=== PATIENT | female | born 1930 | race Caucasian/White ===

== ENCOUNTER 2016-10-08 19:06 | Inpatient (IN) | payer OTHER ==
[~2016-10-08] VITALS: Ht 152.4 cm; Wt 56.5 kg
[2016-10-08 19:56] LABS: HEMATOCRIT 36.6 % (36.0-46.0); MCH 29.9 PG (29.0-34.0); MCHC 34.2 G/DL (30.0-36.0); MCV 87.6 FL (83-99); MEAN PLAT.VOLUME 9.1 uM^3 (9.5-12.4); PLATELET COUNT 422 K/uL (156-360); RBC DIS.WIDTH-SD 40.2 % (39-53); RED BLOOD COUNT 4.18 M/uL (3.80-5.20); WHITE BLOOD COUNT 14.3 K/uL (4.1-10.2)
[2016-10-08 20:05] LABS: CHLORIDE 87 mEq/L (99-109); POTASSIUM 3.7 mEq/L (3.7-5.4); SODIUM 129 mEq/L (136-147)
[2016-10-08 20:06] LABS: GLUCOSE 123 mg/dL (70-99)
[2016-10-08 20:08] LABS: ANION GAP 18 MEQ/L (2-14)
[2016-10-08 20:10] LABS: GFR ESTIMATE (CALCULATED) 25 mL/min/
[2016-10-08 20:11] LABS: UREA NITROGEN (BUN) 49 mg/dL (9-23)
[2016-10-08 20:15] LABS: ADD MIUA? YES; BILIRUBIN NEGATIVE; BLOOD TRACE; COLOR YELLOW ((YELLOW)); GLUCOSE (STRIP) NEGATIVE; KETONES NEGATIVE; LEUKOCYTES LARGE; NITRITE NEGATIVE; PH, URINE 6.5 (5-8); PROTEIN (STRIP) TRACE; SPECIFIC GRAVITY 1.019 (1.000-1.030); UROBILINOGEN 0.2 MG/DL (0.2-1.0)
[2016-10-08 21:02] LABS: BACTERIA 1+; CASTS PRESENT /LPF; CRYSTALS NONE SEEN; EPITHELIAL CELLS 1+; MUCUS 1+; UCUL ADDED? NO
[2016-10-08] MEDS ORDERED: LEVOTHYROXINE75 MCG PO (21:29)
[2016-10-08] MEDS ORDERED: AMLODIPINE BESYL5 MG PO (21:30)
[2016-10-08] MEDS ORDERED: LOSARTAN-HCTZ1 EAC2 PO (21:30)
[2016-10-08] MEDS ORDERED: METOPROLOL SUCC50 MG PO (21:30)
[2016-10-08] MEDS ORDERED: LO-DOSE ASPIRIN81 M2 PO (21:31)
[2016-10-08] MEDS ORDERED: ALPRAZOLAM0.25 M2 PO (21:31)
[2016-10-08] MEDS ORDERED: CENTRUM SILVER1 EAC3 PO (21:32)
[2016-10-08 22:26] LABS: TOTAL BILIRUBIN 0.7 mg/dL (0.0-1.0)
[2016-10-08 22:27] LABS: ALKALINE PHOSPHATASE 87 IU/L (3-129)
[2016-10-08 22:30] LABS: DIRECT BILIRUBIN 0.3 mg/dL (0.0-0.3)
[2016-10-08 22:31] LABS: LIPASE 21 U/L (1.0-51.0)
[2016-10-09] VITALS (7 sets, daily range): BP systolic 101–158; BP diastolic 56–82
[2016-10-09] MEDS ORDERED: XANAX0.25 MG PO (00:08)
[2016-10-09] MEDS ORDERED: NEXIUM20 MG PO (00:09)
[2016-10-09 12:57] LABS: ANION GAP 9 MEQ/L (2-14); CHLORIDE 93 MEQ/L (99-109); GLUCOSE 95 mg/dL (70-99); POTASSIUM 3.3 MEQ/L (3.7-5.4); SAMPLE HEMOLYSIS CHECK 0; SAMPLE ICTERIC CHECK 0; SAMPLE LIPEMIA CHECK 0; SODIUM 129 MEQ/L (136-147); UREA NITROGEN (BUN) 52 mg/dL (9-23)
[2016-10-09 12:59] LABS: GFR ESTIMATE (CALCULATED) 35 mL/min/
[2016-10-09 13:11] LABS: HEMATOCRIT 28.1 % (36.0-46.0); MCH 30.5 PG (29.0-34.0); MCHC 33.1 G/DL (30.0-36.0); RBC DIS.WIDTH-CV 13.7 % (11.8-14.6); RBC DIS.WIDTH-SD 45.8 % (39-53)
[2016-10-09 13:14] LABS: MCV 92.1 FL (83-99); RED BLOOD COUNT 3.05 M/uL (3.80-5.20); WHITE BLOOD COUNT 9.3 K/uL (4.1-10.2)
[2016-10-09 14:01] LABS: PLATELET COUNT UNABLE TO REPORT K/uL (156-360)
[2016-10-10 03:23] VITALS: BP 103/51
[2016-10-10 05:42] LABS: BASOPHIL COUNT 0.1 K/uL (0-0.1); EOSINOPHIL (%) 3.7 % (0-5); EOSINOPHIL COUNT 0.3 K/uL (0-0.3); HEMATOCRIT 24.5 % (36.0-46.0); IMMATURE GRANULOCYTE (%) 0.4 % (0.0-0.7); LYMPHOCYTE COUNT 2.7 K/uL (1.0-2.8); MCH 29.9 PG (29.0-34.0); MCHC 33.1 G/DL (30.0-36.0); MCV 90.4 FL (83-99); MONOCYTE (%) 10.3 % (3-12); MONOCYTE COUNT 0.7 K/uL (0-0.8); NEUTROPHIL (%) 45.6 % (45-76); NEUTROPHIL COUNT 3.1 K/uL (1.8-6.4); RBC DIS.WIDTH-CV 13.9 % (11.8-14.6); RBC DIS.WIDTH-SD 45.5 % (39-53); RED BLOOD COUNT 2.71 M/uL (3.80-5.20); WHITE BLOOD COUNT 6.8 K/uL (4.1-10.2)
[2016-10-10 06:03] LABS: ANION GAP 7 MEQ/L (2-14); CHLORIDE 100 MEQ/L (99-109); GFR ESTIMATE (CALCULATED) 35 mL/min/; GLUCOSE 88 mg/dL (70-99); POTASSIUM 3.9 MEQ/L (3.7-5.4); SAMPLE HEMOLYSIS CHECK 0; SAMPLE ICTERIC CHECK 0; SAMPLE LIPEMIA CHECK 0; SODIUM 131 MEQ/L (136-147); UREA NITROGEN (BUN) 44 mg/dL (9-23)
[2016-10-10 07:53] LABS: PLAT.SUFFICIENCY INCREASED; PLATELET CLUMPS PRESENT - PLATELET COUNT APPEARS INCREASED; PLATELET COUNT UNABLE TO REPORT K/uL (156-360); USER ID SDF
[2016-10-10 08:34] VITALS: BP 127/69
[2016-10-10 10:47] LABS: HEMATOCRIT 24.1 % (36.0-46.0); MCV 90.6 FL (83-99)
[2016-10-10 11:15] VITALS: BP 110/54
[2016-10-10 16:46] VITALS: BP 141/86
[2016-10-10 18:57] LABS: HEMATOCRIT 25.2 % (36.0-46.0); MCV 91.6 FL (83-99)
[2016-10-10 20:22] VITALS: BP 106/52
[2016-10-10 23:07] VITALS: BP 100/55
[2016-10-11] VITALS (8 sets, daily range): BP systolic 96–135; BP diastolic 50–72
[2016-10-11 06:30] LABS: HEMATOCRIT 23.2 % (36.0-46.0); MCH 29.8 PG (29.0-34.0); MCHC 32.3 G/DL (30.0-36.0); MCV 92.1 FL (83-99); RBC DIS.WIDTH-CV 14.1 % (11.8-14.6); RBC DIS.WIDTH-SD 46.9 % (39-53); RED BLOOD COUNT 2.52 M/uL (3.80-5.20); WHITE BLOOD COUNT 5.8 K/uL (4.1-10.2)
[2016-10-11 06:53] LABS: ANION GAP 6 MEQ/L (2-14); CHLORIDE 102 MEQ/L (99-109); GFR ESTIMATE (CALCULATED) 38 mL/min/; GLUCOSE 89 mg/dL (70-99); POTASSIUM 3.8 MEQ/L (3.7-5.4); SAMPLE HEMOLYSIS CHECK 0; SAMPLE ICTERIC CHECK 0; SAMPLE LIPEMIA CHECK 0; SODIUM 131 MEQ/L (136-147); UREA NITROGEN (BUN) 28 mg/dL (9-23)
[2016-10-11 08:15] LABS: PLATELET COUNT UNABLE TO REPORT K/uL (156-360)
[2016-10-12] VITALS (8 sets, daily range): BP systolic 102–138; BP diastolic 55–74
[2016-10-12 08:41] LABS: HEMATOCRIT 27.9 % (36.0-46.0); MCH 29.2 PG (29.0-34.0); MCHC 32.3 G/DL (30.0-36.0); MCV 90.6 FL (83-99); RBC DIS.WIDTH-CV 14.4 % (11.8-14.6); RBC DIS.WIDTH-SD 47.5 % (39-53); WHITE BLOOD COUNT 4.7 K/uL (4.1-10.2)
[2016-10-12 08:42] LABS: RED BLOOD COUNT 3.08 M/uL (3.80-5.20)
[2016-10-12 08:44] LABS: ANION GAP 7 MEQ/L (2-14); CHLORIDE 102 MEQ/L (99-109); GFR ESTIMATE (CALCULATED) 50 mL/min/; GLUCOSE 84 mg/dL (70-99); POTASSIUM 3.8 MEQ/L (3.7-5.4); SAMPLE HEMOLYSIS CHECK 0; SAMPLE ICTERIC CHECK 0; SAMPLE LIPEMIA CHECK 0; SODIUM 135 MEQ/L (136-147); UREA NITROGEN (BUN) 18 mg/dL (9-23)
[2016-10-12 09:30] LABS: MEAN PLAT.VOLUME 9.3 uM^3 (9.5-12.4); PLATELET COUNT 277 K/uL (156-360)
[2016-10-12 13:06] LABS: HEMATOCRIT 29.9 % (36.0-46.0); MCV 90.6 FL (83-99)
[2016-10-13 07:04] LABS: HEMATOCRIT 28.4 % (36.0-46.0); MCH 29.5 PG (29.0-34.0); MCHC 32.7 G/DL (30.0-36.0); MCV 90.2 FL (83-99); MEAN PLAT.VOLUME 9.2 uM^3 (9.5-12.4); PLATELET COUNT 294 K/uL (156-360); RBC DIS.WIDTH-CV 14.4 % (11.8-14.6); RBC DIS.WIDTH-SD 47.4 % (39-53); RED BLOOD COUNT 3.15 M/uL (3.80-5.20)
[2016-10-13 07:58] VITALS: BP 91/63
[2016-10-13] MEDS ORDERED: CEFDINIR300 MG PO (11:59)
[2016-10-13] MEDS ORDERED: PANTOPRAZOLE SO40 MG PO (11:59)
[2016-10-13] MEDS ORDERED: LOSARTAN POTAS100 MG PO (11:59)
[2016-10-13] MEDS ORDERED: HYDROCORTISONE30 G2 PR (11:59)
[2016-10-13] MEDS ORDERED: SUCRALFATE1 GM/10 ML PO (11:59)
== END 2016-10-13 13:24 | disposition home health service (06) | DRG 378 ==
LOC: EME 19:06 → EDOF 23:41 → 5EAST 23:41
PROVIDERS: Hospitalist; Internal Medicine Gastroenterology; Physician Assistant
PROC: 0DB68ZX Excision of Stomach, Via Natural or Artificial Opening Endoscopic, Diagnostic (ICD-10-PCS; principal; 2016-10-11)
PROC: 0DJ08ZZ Inspection of Upper Intestinal Tract, Via Natural or Artificial Opening Endoscopic (ICD-10-PCS; principal; 2016-10-11)
PROC: 30233N1 Transfusion of Nonautologous Red Blood Cells into Peripheral Vein, Percutaneous Approach (ICD-10-PCS; 2016-10-11)
DX: K29.81 Duodenitis with bleeding (principal); K26.4 Chronic or unspecified duodenal ulcer with hemorrhage; N17.9 Acute kidney failure, unspecified; D62 Acute posthemorrhagic anemia; E87.1 Hypo-osmolality and hyponatremia; E86.0 Dehydration; N39.0 Urinary tract infection, site not specified; B96.20 Unspecified Escherichia coli [E. coli] as the cause of diseases classified elsewhere; I12.9 Hypertensive chronic kidney disease with stage 1 through stage 4 chronic kidney disease, or unspecified chronic kidney disease; N18.9 Chronic kidney disease, unspecified; R19.7 Diarrhea, unspecified; R11.2 Nausea with vomiting, unspecified; E03.9 Hypothyroidism, unspecified; F41.9 Anxiety disorder, unspecified; Z87.11 Personal history of peptic ulcer disease; Z87.891 Personal history of nicotine dependence; E87.6 Hypokalemia; K44.9 Diaphragmatic hernia without obstruction or gangrene
CPT/HCPCS: 74176; 80048; 80069; 80076; 81003; 82272; 83690; 85014; 85018; 85025; 85027; 86850; 86900; 86901; 86920; 87077; 87086; 87186; 88305; 88342 TC; 94799; 99281; 99285; B4087; C9113; J0696; J1644; J2270; J2405; J7030; J7050; P9016

== ENCOUNTER 2016-11-03 16:35 | Inpatient (IN) | payer OTHER ==
[~2016-11-03] VITALS: Ht 152.4 cm; Wt 48.6 kg
[~2016-11-03 16:35] MED LIST: ALPRAZOLAM0.25 M2 PO; AMLODIPINE BESYL5 MG PO; CEFDINIR300 MG PO; CENTRUM SILVER1 EAC3 PO; HYDROCORTISONE30 G2 PR; LEVOTHYROXINE75 MCG PO; LO-DOSE ASPIRIN81 M2 PO; LOSARTAN POTAS100 MG PO; LOSARTAN-HCTZ1 EAC2 PO; METOPROLOL SUCC50 MG PO; NEXIUM20 MG PO; PANTOPRAZOLE SO40 MG PO; SUCRALFATE1 GM/10 ML PO; XANAX0.25 MG PO
[2016-11-03 17:45] LABS: BASOPHIL COUNT 0.1 K/uL (0-0.1); EOSINOPHIL (%) 0.6 % (0-5); EOSINOPHIL COUNT 0.1 K/uL (0-0.3); HEMATOCRIT 29.4 % (36.0-46.0); IMMATURE GRANULOCYTE (%) 0.4 % (0.0-0.7); IMMATURE GRANULOCYTE COUNT 0.3 K/uL; LYMPHOCYTE COUNT 1.3 K/uL (1.0-2.8); MCH 28.2 PG (29.0-34.0); MCHC 31.3 G/DL (30.0-36.0); MCV 90.2 FL (83-99); MEAN PLAT.VOLUME 8.6 uM^3 (9.5-12.4); MONOCYTE (%) 7.2 % (3-12); MONOCYTE COUNT 0.6 K/uL (0-0.8); NEUTROPHIL (%) 74.8 % (45-76); PLATELET COUNT 453 K/uL (156-360); RBC DIS.WIDTH-CV 14.3 % (11.8-14.6); RBC DIS.WIDTH-SD 45.6 % (39-53); RED BLOOD COUNT 3.26 M/uL (3.80-5.20)
[2016-11-03 17:56] LABS: D-DIMER ELISA 3.85 mg/L FEU (< 0.57)
[2016-11-03 18:03] LABS: CHLORIDE 108 mEq/L (99-109); POTASSIUM 3.6 mEq/L (3.7-5.4)
[2016-11-03 18:04] LABS: TROP-I INTERPRETATION NEGATIVE; TROPONIN-I 0.07 ng/mL (0.0-0.30)
[2016-11-03 18:06] LABS: GLUCOSE 133 mg/dL (70-99)
[2016-11-03 18:07] LABS: ANION GAP 13 MEQ/L (2-14)
[2016-11-03 18:08] LABS: TOTAL BILIRUBIN 0.3 mg/dL (0.0-1.0)
[2016-11-03 18:09] LABS: ALKALINE PHOSPHATASE 87 IU/L (3-129); GFR ESTIMATE (CALCULATED) 24 mL/min/
[2016-11-03 18:10] LABS: UREA NITROGEN (BUN) 31 mg/dL (9-23)
[2016-11-03 18:13] LABS: LIPASE 16 U/L (1.0-51.0)
[2016-11-03 18:16] LABS: SODIUM 144 mEq/L (136-147)
[2016-11-03] MEDS ORDERED: LEVOFLOXACIN250 MG PO (18:31)
[2016-11-03 19:58] LABS: ADD MIUA? YES; BILIRUBIN NEGATIVE; BLOOD NEGATIVE; COLOR YELLOW ((YELLOW)); GLUCOSE (STRIP) NEGATIVE; KETONES NEGATIVE; LEUKOCYTES NEGATIVE; NITRITE NEGATIVE; PROTEIN (STRIP) 30; SPECIFIC GRAVITY 1.016 (1.000-1.030); UROBILINOGEN 0.2 MG/DL (0.2-1.0)
[2016-11-03 20:09] LABS: BACTERIA NONE SEEN /HPF; CASTS PRESENT /LPF; CRYSTALS NONE SEEN; EPITHELIAL CELLS RARE /HPF; MUCUS TRACE /LPF; UCUL ADDED? NO; WHITE BLOOD CELLS 0-5 /HPF (0-5)
[2016-11-04 00:48] LABS: TROP-I INTERPRETATION NEGATIVE; TROPONIN-I 0.07 ng/mL (0.0-0.30)
[2016-11-04 06:11] LABS: HEMATOCRIT 27.5 % (36.0-46.0); MCH 28.2 PG (29.0-34.0); MCHC 31.6 G/DL (30.0-36.0); MEAN PLAT.VOLUME 8.6 uM^3 (9.5-12.4); PLATELET COUNT 452 K/uL (156-360); RBC DIS.WIDTH-SD 44.2 % (39-53); RED BLOOD COUNT 3.09 M/uL (3.80-5.20); WHITE BLOOD COUNT 6.6 K/uL (4.1-10.2)
[2016-11-04 06:12] LABS: CHLORIDE 107 mEq/L (99-109); POTASSIUM 3.2 mEq/L (3.7-5.4); SODIUM 145 mEq/L (136-147)
[2016-11-04 06:15] LABS: ANION GAP 12 MEQ/L (2-14); GLUCOSE 92 mg/dL (70-99)
[2016-11-04 06:17] LABS: GFR ESTIMATE (CALCULATED) 27 mL/min/
[2016-11-04 06:18] LABS: UREA NITROGEN (BUN) 28 mg/dL (9-23)
[2016-11-04 06:23] LABS: TROP-I INTERPRETATION NEGATIVE; TROPONIN-I 0.07 ng/mL (0.0-0.30)
[2016-11-04] MEDS ORDERED: LOSARTAN POTAS100 MG PO (14:03)
[2016-11-04] MEDS ORDERED: PROAIR HFA8.5 GM IH (14:03)
[2016-11-04 14:04] VITALS: BP 90/51
[2016-11-04] MEDS ORDERED: PANTOPRAZOLE SO40 MG PO (14:04)
[2016-11-04] MEDS ORDERED: ANUSOL-HC21 GM PR (14:05)
[2016-11-04] MEDS ORDERED: DULCOLAX10 MG PR (14:06)
[2016-11-04] MEDS ORDERED: SLEEP AID25 M2 PO (14:07)
[2016-11-04] MEDS ORDERED: BREO ELLIPTA I1 EACH IH (14:09)
[2016-11-04] MEDS ORDERED: ALPRAZOLAM0.25 M2 PO (14:10)
[2016-11-04 16:31] VITALS: BP 86/52
[2016-11-04 16:35] VITALS: BP 98/60
[2016-11-04 19:51] VITALS: BP 114/59
[2016-11-04 23:54] VITALS: BP 106/53
[2016-11-05 04:07] VITALS: BP 111/54
[2016-11-05 06:23] LABS: ANION GAP 7 MEQ/L (2-14); CHLORIDE 104 MEQ/L (99-109); GFR ESTIMATE (CALCULATED) 28 mL/min/; GLUCOSE 97 mg/dL (70-99); POTASSIUM 3.6 MEQ/L (3.7-5.4); SAMPLE HEMOLYSIS CHECK 0; SAMPLE ICTERIC CHECK 0; SAMPLE LIPEMIA CHECK 0; SODIUM 140 MEQ/L (136-147); UREA NITROGEN (BUN) 26 mg/dL (9-23)
[2016-11-05 06:29] LABS: BASOPHIL COUNT 0.1 K/uL (0-0.1); EOSINOPHIL (%) 4.3 % (0-5); EOSINOPHIL COUNT 0.3 K/uL (0-0.3); HEMATOCRIT 27.9 % (36.0-46.0); IMMATURE GRANULOCYTE (%) 0.5 % (0.0-0.7); LYMPHOCYTE COUNT 1.8 K/uL (1.0-2.8); MCH 29.3 PG (29.0-34.0); MCHC 29.4 G/DL (30.0-36.0); MONOCYTE (%) 11.6 % (3-12); MONOCYTE COUNT 0.7 K/uL (0-0.8); NEUTROPHIL (%) 53.2 % (45-76); NEUTROPHIL COUNT 3.2 K/uL (1.8-6.4); RBC DIS.WIDTH-CV 15.9 % (11.8-14.6); RBC DIS.WIDTH-SD 57.8 % (39-53)
[2016-11-05 06:34] LABS: MCV 99.6 FL (83-99)
[2016-11-05 07:41] VITALS: BP 121/56
[2016-11-05 07:59] LABS: PLAT.SUFFICIENCY ADEQUATE; USER ID STC
[2016-11-05 11:26] VITALS: BP 120/51
[2016-11-05 15:32] VITALS: BP 120/51
[2016-11-05 19:20] VITALS: BP 113/53
[2016-11-05 23:08] VITALS: BP 118/62
[2016-11-06] VITALS (7 sets, daily range): BP systolic 95–118; BP diastolic 52–66
[2016-11-06 11:17] LABS: EOSINOPHIL (%) 2.7 % (0-5); EOSINOPHIL COUNT 0.2 K/uL (0-0.3); HEMATOCRIT 30.2 % (36.0-46.0); IMMATURE GRANULOCYTE (%) 0.5 % (0.0-0.7); LYMPHOCYTE COUNT 1.3 K/uL (1.0-2.8); MCH 28.4 PG (29.0-34.0); MCHC 31.1 G/DL (30.0-36.0); MONOCYTE (%) 8.1 % (3-12); MONOCYTE COUNT 0.6 K/uL (0-0.8); NEUTROPHIL (%) 70.4 % (45-76); NEUTROPHIL COUNT 5.2 K/uL (1.8-6.4); RBC DIS.WIDTH-CV 14.3 % (11.8-14.6); RBC DIS.WIDTH-SD 47.7 % (39-53); RED BLOOD COUNT 3.31 M/uL (3.80-5.20); WHITE BLOOD COUNT 7.4 K/uL (4.1-10.2)
[2016-11-06 11:19] LABS: MCV 91.2 FL (83-99)
[2016-11-06 11:51] LABS: ANION GAP 11 MEQ/L (2-14); CHLORIDE 99 MEQ/L (99-109); GFR ESTIMATE (CALCULATED) 30 mL/min/; GLUCOSE 97 mg/dL (70-99); POTASSIUM 3.7 MEQ/L (3.7-5.4); SAMPLE HEMOLYSIS CHECK 0; SAMPLE ICTERIC CHECK 0; SAMPLE LIPEMIA CHECK 0; SODIUM 139 MEQ/L (136-147); UREA NITROGEN (BUN) 27 mg/dL (9-23)
[2016-11-06 11:57] LABS: PLAT.SUFFICIENCY INCREASED; PLATELET CLUMPS PRESENT
[2016-11-06 12:13] LABS: PLATELET COUNT UNABLE TO REPORT K/uL (156-360)
[2016-11-07 03:04] VITALS: BP 103/62
[2016-11-07 06:06] LABS: EOSINOPHIL (%) 0 % (0-5); HEMATOCRIT 28.3 % (36.0-46.0); IMMATURE GRANULOCYTE (%) 0.3 % (0.0-0.7); LYMPHOCYTE COUNT 0.8 K/uL (1.0-2.8); MCH 28.2 PG (29.0-34.0); MCHC 32.2 G/DL (30.0-36.0); MCV 87.6 FL (83-99); MONOCYTE (%) 1.2 % (3-12); MONOCYTE COUNT 0.1 K/uL (0-0.8); NEUTROPHIL (%) 84.6 % (45-76); NEUTROPHIL COUNT 5.1 K/uL (1.8-6.4); RBC DIS.WIDTH-SD 44.7 % (39-53); RED BLOOD COUNT 3.23 M/uL (3.80-5.20)
[2016-11-07 06:27] LABS: TROP-I INTERPRETATION NEGATIVE; TROPONIN-I 0.02 ng/mL (0.0-0.30)
[2016-11-07 06:29] LABS: ANION GAP 11 MEQ/L (2-14); CHLORIDE 96 MEQ/L (99-109); GFR ESTIMATE (CALCULATED) 30 mL/min/; POTASSIUM 3.9 MEQ/L (3.7-5.4); SAMPLE HEMOLYSIS CHECK 0; SAMPLE ICTERIC CHECK 0; SAMPLE LIPEMIA CHECK 0; SODIUM 136 MEQ/L (136-147); UREA NITROGEN (BUN) 33 mg/dL (9-23)
[2016-11-07 06:44] LABS: GLUCOSE 149 mg/dL (70-99)
[2016-11-07 07:58] VITALS: BP 106/55
[2016-11-07 07:59] LABS: PLAT.SUFFICIENCY INCREASED; PLATELET COUNT 409 K/uL (156-360)
[2016-11-07 11:55] VITALS: BP 110/58
[2016-11-07 12:15] LABS: TROP-I INTERPRETATION NEGATIVE; TROPONIN-I 0.03 ng/mL (0.0-0.30)
[2016-11-07 16:16] VITALS: BP 104/52
[2016-11-07 17:13] LABS: TROP-I INTERPRETATION NEGATIVE; TROPONIN-I 0.03 ng/mL (0.0-0.30)
[2016-11-07 20:27] VITALS: BP 96/49
[2016-11-08] VITALS (9 sets, daily range): BP systolic 88–106; BP diastolic 48–62
[2016-11-08 07:17] LABS: EOSINOPHIL (%) 0 % (0-5); HEMATOCRIT 24.6 % (36.0-46.0); IMMATURE GRANULOCYTE (%) 0.4 % (0.0-0.7); LYMPHOCYTE COUNT 0.6 K/uL (1.0-2.8); MCH 28.6 PG (29.0-34.0); MCHC 32.9 G/DL (30.0-36.0); MCV 86.9 FL (83-99); MONOCYTE (%) 3.5 % (3-12); MONOCYTE COUNT 0.3 K/uL (0-0.8); PLATELET COUNT 377 K/uL (156-360); RBC DIS.WIDTH-CV 14.2 % (11.8-14.6); RBC DIS.WIDTH-SD 45.1 % (39-53); RED BLOOD COUNT 2.83 M/uL (3.80-5.20)
[2016-11-08 07:18] LABS: WHITE BLOOD COUNT 7.9 K/uL (4.1-10.2)
[2016-11-08 07:44] LABS: ANION GAP 13 MEQ/L (2-14); CHLORIDE 95 MEQ/L (99-109); GFR ESTIMATE (CALCULATED) 23 mL/min/; GLUCOSE 130 mg/dL (70-99); POTASSIUM 3.7 MEQ/L (3.7-5.4); SAMPLE HEMOLYSIS CHECK 0; SAMPLE ICTERIC CHECK 0; SAMPLE LIPEMIA CHECK 0; SODIUM 135 MEQ/L (136-147); UREA NITROGEN (BUN) 43 mg/dL (9-23)
[2016-11-08 20:08] LABS: HEMATOCRIT 26.4 % (36.0-46.0); MCV 86.8 FL (83-99)
[2016-11-09 00:04] VITALS: BP 110/62
[2016-11-09 04:17] VITALS: BP 103/50
[2016-11-09 06:50] LABS: EOSINOPHIL (%) 0 % (0-5); HEMATOCRIT 24.7 % (36.0-46.0); IMMATURE GRANULOCYTE (%) 0.3 % (0.0-0.7); LYMPHOCYTE COUNT 0.6 K/uL (1.0-2.8); MCH 28.8 PG (29.0-34.0); MCHC 33.2 G/DL (30.0-36.0); MCV 86.7 FL (83-99); MEAN PLAT.VOLUME 9.1 uM^3 (9.5-12.4); MONOCYTE (%) 4.7 % (3-12); MONOCYTE COUNT 0.6 K/uL (0-0.8); NEUTROPHIL (%) 89.9 % (45-76); NEUTROPHIL COUNT 10.7 K/uL (1.8-6.4); PLATELET COUNT 390 K/uL (156-360); RBC DIS.WIDTH-CV 14.3 % (11.8-14.6); RBC DIS.WIDTH-SD 45.2 % (39-53); RED BLOOD COUNT 2.85 M/uL (3.80-5.20)
[2016-11-09 06:55] LABS: WHITE BLOOD COUNT 11.9 K/uL (4.1-10.2)
[2016-11-09 07:01] LABS: ANION GAP 10 MEQ/L (2-14); CHLORIDE 98 MEQ/L (99-109); GFR ESTIMATE (CALCULATED) 28 mL/min/; GLUCOSE 122 mg/dL (70-99); POTASSIUM 3.9 MEQ/L (3.7-5.4); SAMPLE HEMOLYSIS CHECK 0; SAMPLE ICTERIC CHECK 0; SAMPLE LIPEMIA CHECK 0; SODIUM 134 MEQ/L (136-147); UREA NITROGEN (BUN) 41 mg/dL (9-23)
[2016-11-09 08:50] VITALS: BP 120/96
[2016-11-09 12:00] VITALS: BP 118/60
[2016-11-09 16:15] VITALS: BP 101/55
[2016-11-09 19:55] VITALS: BP 133/60
[2016-11-10] VITALS (8 sets, daily range): BP systolic 93–141; BP diastolic 55–69
[2016-11-10 07:50] LABS: ANION GAP 11 MEQ/L (2-14); CHLORIDE 98 MEQ/L (99-109); GFR ESTIMATE (CALCULATED) 33 mL/min/; POTASSIUM 4.2 MEQ/L (3.7-5.4); SAMPLE HEMOLYSIS CHECK 0; SAMPLE ICTERIC CHECK 0; SAMPLE LIPEMIA CHECK 0; SODIUM 136 MEQ/L (136-147); UREA NITROGEN (BUN) 49 mg/dL (9-23)
[2016-11-10 07:59] LABS: GLUCOSE 86 mg/dL (70-99)
[2016-11-11 04:00] VITALS: BP 136/60
[2016-11-11 06:38] LABS: INTER. NORMALIZED RATIO 1.1; PROTHROMBIN TIME 10.7 (9.2-11.2); PTT 24.4 (25-32)
[2016-11-11 08:00] VITALS: BP 112/57
[2016-11-11 08:57] LABS: ANION GAP 7 MEQ/L (2-14); CHLORIDE 98 MEQ/L (99-109); GFR ESTIMATE (CALCULATED) 35 mL/min/; GLUCOSE 90 mg/dL (70-99); POTASSIUM 4.1 MEQ/L (3.7-5.4); SAMPLE HEMOLYSIS CHECK 0; SAMPLE ICTERIC CHECK 0; SAMPLE LIPEMIA CHECK 0; SODIUM 133 MEQ/L (136-147); UREA NITROGEN (BUN) 43 mg/dL (9-23)
[2016-11-11 09:30] LABS: HEMATOCRIT 26.4 % (36.0-46.0); MCH 27.1 PG (29.0-34.0); MCHC 31.1 G/DL (30.0-36.0); MCV 87.1 FL (83-99); MEAN PLAT.VOLUME 9.4 uM^3 (9.5-12.4); PLATELET COUNT 429 K/uL (156-360); RBC DIS.WIDTH-CV 14.4 % (11.8-14.6); RBC DIS.WIDTH-SD 45.8 % (39-53); RED BLOOD COUNT 3.03 M/uL (3.80-5.20)
[2016-11-11 09:33] LABS: WHITE BLOOD COUNT 8.1 K/uL (4.1-10.2)
[2016-11-11 15:16] VITALS: BP 133/60
[2016-11-11 19:44] VITALS: BP 114/58
[2016-11-11 23:51] VITALS: BP 118/58
[2016-11-12 04:27] VITALS: BP 144/70
[2016-11-12 08:01] VITALS: BP 142/65
[2016-11-12 09:48] LABS: HEMATOCRIT 29.1 % (36.0-46.0); MCH 27.8 PG (29.0-34.0); MCHC 31.6 G/DL (30.0-36.0); MCV 87.9 FL (83-99); MEAN PLAT.VOLUME 9.2 uM^3 (9.5-12.4); PLATELET COUNT 459 K/uL (156-360); RBC DIS.WIDTH-CV 14.6 % (11.8-14.6); RBC DIS.WIDTH-SD 46.6 % (39-53); RED BLOOD COUNT 3.31 M/uL (3.80-5.20); WHITE BLOOD COUNT 9.6 K/uL (4.1-10.2)
[2016-11-12 10:23] LABS: ANION GAP 11 MEQ/L (2-14); CHLORIDE 97 MEQ/L (99-109); GFR ESTIMATE (CALCULATED) 35 mL/min/; GLUCOSE 95 mg/dL (70-99); POTASSIUM 4.5 MEQ/L (3.7-5.4); SAMPLE HEMOLYSIS CHECK 0; SAMPLE ICTERIC CHECK 0; SAMPLE LIPEMIA CHECK 0; SODIUM 136 MEQ/L (136-147); UREA NITROGEN (BUN) 37 mg/dL (9-23)
[2016-11-12 11:10] VITALS: BP 129/60
[2016-11-12 15:42] VITALS: BP 107/58
[2016-11-12 19:30] VITALS: BP 130/69
[2016-11-12 23:17] VITALS: BP 117/58
[2016-11-13 05:01] VITALS: BP 128/68
[2016-11-13 07:39] VITALS: BP 141/67
[2016-11-13 12:02] VITALS: BP 113/70
[2016-11-13 15:25] VITALS: BP 110/53
[2016-11-13 19:53] VITALS: BP 154/69
[2016-11-13 23:33] VITALS: BP 117/57
[2016-11-14 03:42] VITALS: BP 138/64
[2016-11-14 07:29] VITALS: BP 157/72
[2016-11-14 16:51] VITALS: BP 128/60
[2016-11-14 20:11] VITALS: BP 122/59
[2016-11-15] VITALS: BP 144/87
[2016-11-15 05:44] LABS: HEMATOCRIT 26.9 % (36.0-46.0); MCH 27.8 PG (29.0-34.0); MCHC 32.3 G/DL (30.0-36.0); MCV 85.9 FL (83-99); MEAN PLAT.VOLUME 9.3 uM^3 (9.5-12.4); PLATELET COUNT 473 K/uL (156-360); RBC DIS.WIDTH-CV 14.6 % (11.8-14.6); RBC DIS.WIDTH-SD 45.6 % (39-53); RED BLOOD COUNT 3.13 M/uL (3.80-5.20); WHITE BLOOD COUNT 9.2 K/uL (4.1-10.2)
[2016-11-15 06:12] LABS: EOSINOPHIL (%) 0.1 % (0-5); IMMATURE GRANULOCYTE (%) 3.4 % (0.0-0.7); IMMATURE GRANULOCYTE COUNT 0.3 K/uL; LYMPHOCYTE COUNT 1.6 K/uL (1.0-2.8); MONOCYTE COUNT 1.3 K/uL (0-0.8); NEUTROPHIL (%) 64.6 % (45-76)
[2016-11-15 06:23] LABS: HEMATOLOGY COMMENT 1 REV
[2016-11-15 06:40] LABS: ANION GAP 8 MEQ/L (2-14); CHLORIDE 95 MEQ/L (99-109); GFR ESTIMATE (CALCULATED) 33 mL/min/; GLUCOSE 86 mg/dL (70-99); SAMPLE HEMOLYSIS CHECK 0; SAMPLE ICTERIC CHECK 0; SAMPLE LIPEMIA CHECK 0; SODIUM 133 MEQ/L (136-147); UREA NITROGEN (BUN) 44 mg/dL (9-23)
[2016-11-15 10:43] VITALS: BP 139/83
[2016-11-15 16:23] VITALS: BP 138/74
[2016-11-15 20:07] VITALS: BP 131/64
[2016-11-16] VITALS: BP 128/58
[2016-11-16 03:40] VITALS: BP 104/66
[2016-11-16 06:16] LABS: HEMATOCRIT 27.1 % (36.0-46.0); MCV 87.1 FL (83-99); MEAN PLAT.VOLUME 9.1 uM^3 (9.5-12.4); PLATELET COUNT 459 K/uL (156-360); RBC DIS.WIDTH-CV 14.8 % (11.8-14.6); RBC DIS.WIDTH-SD 46.1 % (39-53); RED BLOOD COUNT 3.11 M/uL (3.80-5.20); WHITE BLOOD COUNT 7.9 K/uL (4.1-10.2)
[2016-11-16 06:38] LABS: ANION GAP 7 MEQ/L (2-14); CHLORIDE 96 MEQ/L (99-109); GFR ESTIMATE (CALCULATED) 35 mL/min/; GLUCOSE 92 mg/dL (70-99); POTASSIUM 4.1 MEQ/L (3.7-5.4); SAMPLE HEMOLYSIS CHECK 0; SAMPLE ICTERIC CHECK 0; SAMPLE LIPEMIA CHECK 0; SODIUM 135 MEQ/L (136-147); UREA NITROGEN (BUN) 44 mg/dL (9-23)
[2016-11-16 06:46] LABS: EOSINOPHIL (%) 0.1 % (0-5); HEMATOLOGY COMMENT 1 REV; IMMATURE GRANULOCYTE (%) 3.3 % (0.0-0.7); IMMATURE GRANULOCYTE COUNT 0.3 K/uL; LYMPHOCYTE COUNT 1.3 K/uL (1.0-2.8); MONOCYTE (%) 15.3 % (3-12); MONOCYTE COUNT 1.2 K/uL (0-0.8); NEUTROPHIL (%) 64.3 % (45-76); NEUTROPHIL COUNT 5.1 K/uL (1.8-6.4); USER ID SLU
[2016-11-16 08:29] VITALS: BP 131/68
[2016-11-16 15:42] VITALS: BP 138/77
[2016-11-16 19:24] VITALS: BP 131/68
[2016-11-16 23:56] VITALS: BP 143/68
[2016-11-17 04:14] VITALS: BP 143/77
[2016-11-17 08:30] VITALS: BP 108/56
[2016-11-17 11:43] VITALS: BP 119/58
[2016-11-17 16:45] VITALS: BP 115/64
[2016-11-17 20:24] VITALS: BP 146/58
[2016-11-18 00:40] VITALS: BP 173/79
[2016-11-18 04:17] VITALS: BP 149/67
[2016-11-18 07:44] VITALS: BP 175/92
[2016-11-18 11:59] VITALS: BP 115/64
[2016-11-18] MEDS ORDERED: BUMETANIDE1 MG PO (12:17)
[2016-11-18] MEDS ORDERED: SPIRIVA RESPIMAT4 GM IH (12:17)
[2016-11-18] MEDS ORDERED: PREDNISONE10 MG PO (12:28)
[2016-11-18] MEDS ORDERED: CALAN SR,COVER120 MG PO (12:28)
[2016-11-18] MEDS ORDERED: ADVAIR HFA120 INHALA IH (12:28)
== END 2016-11-18 15:49 | disposition home health service (06) | DRG 190 ==
LOC: EME 16:35 → EDOF 22:11 → 4SOUTH 22:11 → 3EAST 11-11 14:25
PROVIDERS: Emergency Medicine; Family Medicine; Internal Medicine; Physician Assistant; Physician Assistant Medical; Radiology Diagnostic Radiology; Student in an Organized Health Care Education/Training Program
PROC: 0BBC3ZX Excision of Right Upper Lung Lobe, Percutaneous Approach, Diagnostic (ICD-10-PCS; principal; 2016-11-11)
PROC: 0W9930Z Drainage of Right Pleural Cavity with Drainage Device, Percutaneous Approach (ICD-10-PCS; 2016-11-11)
DX: J44.0 Chronic obstructive pulmonary disease with (acute) lower respiratory infection (principal); J18.9 Pneumonia, unspecified organism; C34.11 Malignant neoplasm of upper lobe, right bronchus or lung; I27.2 Other secondary pulmonary hypertension; J96.01 Acute respiratory failure with hypoxia; J20.9 Acute bronchitis, unspecified; J44.1 Chronic obstructive pulmonary disease with (acute) exacerbation; J95.811 Postprocedural pneumothorax; N17.9 Acute kidney failure, unspecified; J90 Pleural effusion, not elsewhere classified; I27.81 Cor pulmonale (chronic); I95.2 Hypotension due to drugs; T44.7X5A Adverse effect of beta-adrenoreceptor antagonists, initial encounter; I07.1 Rheumatic tricuspid insufficiency; I48.91 Unspecified atrial fibrillation; I12.9 Hypertensive chronic kidney disease with stage 1 through stage 4 chronic kidney disease, or unspecified chronic kidney disease; N18.4 Chronic kidney disease, stage 4 (severe); E78.5 Hyperlipidemia, unspecified; E03.9 Hypothyroidism, unspecified; Z66 Do not resuscitate; Z87.11 Personal history of peptic ulcer disease; Z87.891 Personal history of nicotine dependence
CPT/HCPCS: 32552; 49405; 71010; 71250; 77012; 78582; 80048; 80053; 81003; 82272; 83605; 83690; 83880; 84484; 85014; 85018; 85025; 85027; 85379; 85610; 85730; 88305; 88341 TC; 88342 TC; 93005; 93306; 94010; 94640; 94640 76; 94799; 97530 GO; 97530 GP; 99202; 99281; 99285; A9540; A9567; C1729; C1769; J0696; J1644; J1940; J2405; J2930; J3010; J7040; J7050; J7512

== ENCOUNTER 2017-07-04 12:02 | Inpatient (IN) | payer OTHER ==
[~2017-07-04] VITALS: Ht 152.4 cm; Wt 58.1 kg
[~2017-07-04 12:02] MED LIST changes: +ADVAIR HFA120 INHALA IH; +ANUSOL-HC21 GM PR; +BREO ELLIPTA I1 EACH IH; +BUMETANIDE1 MG PO; +CALAN SR,COVER120 MG PO; +DULCOLAX10 MG PR; +LEVOFLOXACIN250 MG PO; +PREDNISONE10 MG PO; +PROAIR HFA8.5 GM IH; +SLEEP AID25 M2 PO; +SPIRIVA RESPIMAT4 GM IH
[2017-07-04 12:54] LABS: HEMATOCRIT 32.7 % (36.0-46.0); MCH 28.7 PG (29.0-34.0); MCHC 31.2 G/DL (30.0-36.0); MCV 92.1 FL (83-99); PLATELET COUNT 290 K/uL (156-360); RBC DIS.WIDTH-CV 15.8 % (11.8-14.6); RED BLOOD COUNT 3.55 M/uL (3.80-5.20); WHITE BLOOD COUNT 7.9 K/uL (4.1-10.2)
[2017-07-04 13:06] LABS: CHLORIDE 102 mEq/L (99-109); POTASSIUM 3.2 mEq/L (3.7-5.4); SODIUM 139 mEq/L (136-147)
[2017-07-04 13:08] LABS: GLUCOSE 103 mg/dL (70-99)
[2017-07-04 13:10] LABS: ANION GAP 11 MEQ/L (2-14)
[2017-07-04 13:12] LABS: GFR ESTIMATE (CALCULATED) 20 mL/min/
[2017-07-04 13:13] LABS: UREA NITROGEN (BUN) 41 mg/dL (9-23)
[2017-07-04 13:20] LABS: TROP-I INTERPRETATION NEGATIVE; TROPONIN-I 0.02 ng/mL (0.0-0.30)
[2017-07-04] MEDS ORDERED: SYNTHROID100 MCG PO (15:21)
[2017-07-04] MEDS ORDERED: MIRALAX17 GM PO (15:26)
[2017-07-04] MEDS ORDERED: PROBIOTIC1 EAC1 PO (15:26)
[2017-07-04] MEDS ORDERED: ZANTAC300 MG PO (15:26)
[2017-07-04] MEDS ORDERED: TYLENOL REGULA325 MG PO (15:27)
[2017-07-04] MEDS ORDERED: HYDROCORTISONE30 G2 TP (15:28)
[2017-07-04 17:28] VITALS: BP 116/71
[2017-07-04 19:18] VITALS: BP 115/65
[2017-07-05] VITALS (7 sets, daily range): BP systolic 128–174; BP diastolic 64–92
[2017-07-05 07:15] LABS: HEMATOCRIT 30.5 % (36.0-46.0); MCH 27.9 PG (29.0-34.0); MCHC 30.8 G/DL (30.0-36.0); MCV 90.5 FL (83-99); MEAN PLAT.VOLUME 9.1 uM^3 (9.5-12.4); PLATELET COUNT 269 K/uL (156-360); RBC DIS.WIDTH-CV 15.6 % (11.8-14.6); RBC DIS.WIDTH-SD 50.7 % (39-53); RED BLOOD COUNT 3.37 M/uL (3.80-5.20); WHITE BLOOD COUNT 3.9 K/uL (4.1-10.2)
[2017-07-05 07:55] LABS: ANION GAP 11 MEQ/L (2-14); CHLORIDE 101 MEQ/L (99-109); GFR ESTIMATE (CALCULATED) 22 mL/min/; GLUCOSE 135 mg/dL (70-99); SAMPLE HEMOLYSIS CHECK 0; SAMPLE ICTERIC CHECK 0; SAMPLE LIPEMIA CHECK 0; SODIUM 138 MEQ/L (136-147); UREA NITROGEN (BUN) 41 mg/dL (9-23)
[2017-07-05 07:58] LABS: POTASSIUM 4.4 MEQ/L (3.7-5.4)
[2017-07-05 11:29] LABS: INTERNAL CONTROL VALID? YES
[2017-07-06 03:25] VITALS: BP 140/74
[2017-07-06 07:35] VITALS: BP 151/82
[2017-07-06 07:51] LABS: HEMATOCRIT 31.7 % (36.0-46.0); MCHC 30.6 G/DL (30.0-36.0); MCV 91.4 FL (83-99); PLATELET COUNT 297 K/uL (156-360); RBC DIS.WIDTH-CV 15.7 % (11.8-14.6); RBC DIS.WIDTH-SD 51.8 % (39-53); RED BLOOD COUNT 3.47 M/uL (3.80-5.20); WHITE BLOOD COUNT 5.3 K/uL (4.1-10.2)
[2017-07-06 08:14] LABS: ANION GAP 11 MEQ/L (2-14); CHLORIDE 98 MEQ/L (99-109); GFR ESTIMATE (CALCULATED) 22 mL/min/; GLUCOSE 118 mg/dL (70-99); POTASSIUM 4.6 MEQ/L (3.7-5.4); SAMPLE HEMOLYSIS CHECK 0; SAMPLE ICTERIC CHECK 0; SAMPLE LIPEMIA CHECK 0; SODIUM 136 MEQ/L (136-147); UREA NITROGEN (BUN) 43 mg/dL (9-23)
[2017-07-06 11:34] VITALS: BP 125/84
[2017-07-06 15:20] VITALS: BP 129/86
[2017-07-06 19:05] VITALS: BP 178/86
[2017-07-06 23:10] VITALS: BP 137/79
[2017-07-07 03:10] VITALS: BP 179/85
[2017-07-07 05:38] LABS: PROTHROMBIN TIME 11.2 SEC (10.2-12.9)
[2017-07-07 05:40] LABS: PTT 25.7 SEC (25-37)
[2017-07-07 05:48] LABS: CHLORIDE 99 mEq/L (99-109); POTASSIUM 4.5 mEq/L (3.7-5.4); SODIUM 138 mEq/L (136-147)
[2017-07-07 05:50] LABS: GLUCOSE 131 mg/dL (70-99)
[2017-07-07 05:51] LABS: ANION GAP 13 MEQ/L (2-14)
[2017-07-07 05:54] LABS: GFR ESTIMATE (CALCULATED) 27 mL/min/
[2017-07-07 05:55] LABS: UREA NITROGEN (BUN) 48 mg/dL (9-23)
[2017-07-07 08:04] VITALS: BP 149/73
[2017-07-07 08:56] LABS: TYPE OF FLUID PLEURAL
[2017-07-07 10:07] LABS: BODY FLUID EOSINOPHILS 0 % (0-25); BODY FLUID RBC'S < 1000 /MM^3 (0-100); BODY FLUID WBC'S 98 /MM^3 (0-500); MONONUCLEAR WBC'S 87 %; POLYNUCLEAR WBC'S 13 % (0-25)
[2017-07-07 10:08] LABS: BODY FLUID LDH 64 IU/L; BODY FLUID PROTEIN < 3.0 G/DL
[2017-07-07 11:27] VITALS: BP 174/87
[2017-07-07 15:50] VITALS: BP 144/70
[2017-07-07 20:11] VITALS: BP 175/82
[2017-07-08 00:04] VITALS: BP 140/75
[2017-07-08 04:10] VITALS: BP 138/68
[2017-07-08 07:32] LABS: ANION GAP 10 MEQ/L (2-14); CHLORIDE 96 MEQ/L (99-109); GFR ESTIMATE (CALCULATED) 28 mL/min/; GLUCOSE 113 mg/dL (70-99); POTASSIUM 4.4 MEQ/L (3.7-5.4); SAMPLE HEMOLYSIS CHECK 0; SAMPLE ICTERIC CHECK 0; SAMPLE LIPEMIA CHECK 0; SODIUM 135 MEQ/L (136-147); UREA NITROGEN (BUN) 44 mg/dL (9-23)
[2017-07-08 07:35] VITALS: BP 197/93
[2017-07-08 09:05] VITALS: BP 165/91
[2017-07-08] MEDS ORDERED: PREDNISONE10 MG PO (11:49)
[2017-07-08 12:08] VITALS: BP 156/85
== END 2017-07-08 13:56 | disposition home health service (06) | DRG 189 ==
LOC: EME 12:02 → EDOF 14:37 → 2EAST 14:37 → ENRESERV 14:41 → 2EAST 17:16
PROVIDERS: Hospitalist; Internal Medicine; Internal Medicine Pulmonary Disease; Radiology Diagnostic Radiology
PROC: 0W993ZZ Drainage of Right Pleural Cavity, Percutaneous Approach (ICD-10-PCS; principal; 2017-07-07)
DX: J96.01 Acute respiratory failure with hypoxia (principal); D63.1 Anemia in chronic kidney disease; N17.9 Acute kidney failure, unspecified; J44.0 Chronic obstructive pulmonary disease with (acute) lower respiratory infection; J18.9 Pneumonia, unspecified organism; J44.1 Chronic obstructive pulmonary disease with (acute) exacerbation; I50.9 Heart failure, unspecified; I13.0 Hypertensive heart and chronic kidney disease with heart failure and stage 1 through stage 4 chronic kidney disease, or unspecified chronic kidney disease; I27.81 Cor pulmonale (chronic); I27.29 Other secondary pulmonary hypertension; C34.91 Malignant neoplasm of unspecified part of right bronchus or lung; I48.91 Unspecified atrial fibrillation; E89.0 Postprocedural hypothyroidism; Z87.891 Personal history of nicotine dependence; Z66 Do not resuscitate; J98.11 Atelectasis; N18.9 Chronic kidney disease, unspecified; J90 Pleural effusion, not elsewhere classified; E87.6 Hypokalemia; Z85.118 Personal history of other malignant neoplasm of bronchus and lung; Z87.11 Personal history of peptic ulcer disease; Z92.3 Personal history of irradiation
CPT/HCPCS: 71010; 71020; 71250; 76942; 80048; 80069; 82945; 83615 91; 83880; 84157; 84484; 85027; 85610; 85730; 87040; 87070; 87075; 87205; 87449; 88108; 88305; 89051; 93005; 93306; 94640; 94640 76; 94799; 97530 GO; 99202; 99281; 99285; J0456; J1644; J2543; J7050; J7512

== ENCOUNTER 2017-07-18 14:57 | Inpatient (IN) | payer OTHER ==
[~2017-07-18] VITALS: Ht 152.4 cm; Wt 63.7 kg
[~2017-07-18 14:57] MED LIST changes: +HYDROCORTISONE30 G2 TP; +MIRALAX17 GM PO; +PROBIOTIC1 EAC1 PO; +SYNTHROID100 MCG PO; +TYLENOL REGULA325 MG PO; +ZANTAC300 MG PO
[2017-07-18 16:54] LABS: EOSINOPHIL (%) 0.2 % (0-5); HEMATOCRIT 36.8 % (36.0-46.0); IMMATURE GRANULOCYTE COUNT 0.1 K/uL; INSTRUMENT ABS NEUTROPHIL CT 11.2 K/uL; LYMPHOCYTE COUNT 0.8 K/uL (1.0-2.8); MCH 28.4 PG (29.0-34.0); MCHC 32.9 G/DL (30.0-36.0); MONOCYTE (%) 8.2 % (3-12); MONOCYTE COUNT 1.1 K/uL (0-0.8); NEUTROPHIL (%) 84.6 % (45-76); NEUTROPHIL COUNT 11.2 K/uL (1.8-6.4); PLATELET COUNT 238 K/uL (156-360); RBC DIS.WIDTH-CV 14.8 % (11.8-14.6); RBC DIS.WIDTH-SD 46.5 % (39-53); WHITE BLOOD COUNT 13.2 K/uL (4.1-10.2)
[2017-07-18 16:57] LABS: MCV 86.4 FL (83-99); RED BLOOD COUNT 4.26 M/uL (3.80-5.20)
[2017-07-18 17:02] LABS: CHLORIDE 86 mEq/L (99-109); POTASSIUM 2.7 mEq/L (3.7-5.4); SODIUM 129 mEq/L (136-147)
[2017-07-18 17:03] LABS: GLUCOSE 99 mg/dL (70-99)
[2017-07-18 17:05] LABS: ANION GAP 17 MEQ/L (2-14)
[2017-07-18 17:07] LABS: GFR ESTIMATE (CALCULATED) 27 mL/min/
[2017-07-18 17:08] LABS: UREA NITROGEN (BUN) 50 mg/dL (9-23)
[2017-07-18] MEDS ORDERED: VALACYCLOVIR1000 MG PO (19:09)
[2017-07-18] MEDS ORDERED: GABAPENTIN100 MG PO (19:11)
[2017-07-18 21:19] LABS: CHLORIDE 93 mEq/L (99-109); POTASSIUM 3.1 mEq/L (3.7-5.4); SODIUM 129 mEq/L (136-147)
[2017-07-18 21:21] LABS: GLUCOSE 102 mg/dL (70-99)
[2017-07-18 21:22] LABS: ANION GAP 15 MEQ/L (2-14)
[2017-07-18 21:25] LABS: GFR ESTIMATE (CALCULATED) 30 mL/min/
[2017-07-18 21:26] LABS: UREA NITROGEN (BUN) 49 mg/dL (9-23)
[2017-07-18 21:30] VITALS: BP 138/84
[2017-07-18 23:59] VITALS: BP 135/85
[2017-07-19 06:53] LABS: HEMATOCRIT 36.2 % (36.0-46.0); MCH 28.2 PG (29.0-34.0); MCHC 31.2 G/DL (30.0-36.0); MCV 90.3 FL (83-99); MEAN PLAT.VOLUME 10.2 uM^3 (9.5-12.4); PLATELET COUNT 213 K/uL (156-360); RBC DIS.WIDTH-CV 14.9 % (11.8-14.6); RBC DIS.WIDTH-SD 48.9 % (39-53); RED BLOOD COUNT 4.01 M/uL (3.80-5.20); WHITE BLOOD COUNT 9.6 K/uL (4.1-10.2)
[2017-07-19 07:13] LABS: ADD MIUA? YES; BILIRUBIN NEGATIVE; BLOOD SMALL; COLOR YELLOW ((YELLOW)); GLUCOSE (STRIP) NEGATIVE; KETONES NEGATIVE; LEUKOCYTES SMALL; NITRITE NEGATIVE; PROTEIN (STRIP) 100; SPECIFIC GRAVITY 1.019 (1.000-1.030); UROBILINOGEN 0.2 MG/DL (0.2-1.0)
[2017-07-19 07:14] LABS: ALKALINE PHOSPHATASE 67 IU/L (3-129); ANION GAP 13 MEQ/L (2-14); CHLORIDE 92 MEQ/L (99-109); GFR ESTIMATE (CALCULATED) 27 mL/min/; GLUCOSE 119 mg/dL (70-99); SAMPLE HEMOLYSIS CHECK 0; SAMPLE ICTERIC CHECK 0; SAMPLE LIPEMIA CHECK 0; SODIUM 130 MEQ/L (136-147); TOTAL BILIRUBIN 0.8 MG/DL (0.0-1.0); UREA NITROGEN (BUN) 47 mg/dL (9-23)
[2017-07-19 07:16] LABS: POTASSIUM 4.2 MEQ/L (3.7-5.4)
[2017-07-19 07:26] LABS: BACTERIA RARE /HPF; EPITHELIAL CELLS RARE /HPF; HYALINE CASTS 20-30 /LPF; MUCUS TRACE /LPF; RED BLOOD CELLS 0-5 /HPF (0-5); UCUL ADDED? YES; WHITE BLOOD CELLS 20-30 /HPF (0-5)
[2017-07-19 08:26] VITALS: BP 136/68
[2017-07-19 11:42] VITALS: BP 104/58
[2017-07-19 15:30] VITALS: BP 105/60
[2017-07-19 19:51] VITALS: BP 136/82
[2017-07-20 00:07] VITALS: BP 126/68
[2017-07-20 00:18] VITALS: BP 126/68
[2017-07-20 08:00] VITALS: BP 132/64
[2017-07-20 11:14] LABS: EOSINOPHIL (%) 0.1 % (0-5); HEMATOCRIT 28.9 % (36.0-46.0); IMMATURE GRANULOCYTE (%) 1.3 % (0.0-0.7); IMMATURE GRANULOCYTE COUNT 0.1 K/uL; INSTRUMENT ABS NEUTROPHIL CT 8.4 K/uL; LYMPHOCYTE COUNT 0.8 K/uL (1.0-2.8); MCH 28.7 PG (29.0-34.0); MCHC 32.5 G/DL (30.0-36.0); MCV 88.4 FL (83-99); MEAN PLAT.VOLUME 10.7 uM^3 (9.5-12.4); MONOCYTE (%) 9.3 % (3-12); NEUTROPHIL (%) 81.4 % (45-76); NEUTROPHIL COUNT 8.4 K/uL (1.8-6.4); PLATELET COUNT 165 K/uL (156-360); RBC DIS.WIDTH-SD 47.4 % (39-53); RED BLOOD COUNT 3.27 M/uL (3.80-5.20); WHITE BLOOD COUNT 10.3 K/uL (4.1-10.2)
[2017-07-20 11:27] VITALS: BP 143/62
[2017-07-20 11:39] LABS: ANION GAP 11 MEQ/L (2-14); CHLORIDE 94 MEQ/L (99-109); GFR ESTIMATE (CALCULATED) 21 mL/min/; SAMPLE HEMOLYSIS CHECK 0; SAMPLE ICTERIC CHECK 0; SAMPLE LIPEMIA CHECK 0; SODIUM 125 MEQ/L (136-147); UREA NITROGEN (BUN) 55 mg/dL (9-23)
[2017-07-20 11:40] LABS: GLUCOSE 83 mg/dL (70-99)
[2017-07-20 16:00] VITALS: BP 122/78
[2017-07-20 19:45] VITALS: BP 136/83
[2017-07-21 00:09] VITALS: BP 168/85
[2017-07-21 07:27] LABS: EOSINOPHIL (%) 0.2 % (0-5); HEMATOCRIT 34.3 % (36.0-46.0); IMMATURE GRANULOCYTE (%) 1.6 % (0.0-0.7); IMMATURE GRANULOCYTE COUNT 0.2 K/uL; INSTRUMENT ABS NEUTROPHIL CT 10.6 K/uL; LYMPHOCYTE COUNT 0.8 K/uL (1.0-2.8); MCH 28.3 PG (29.0-34.0); MCHC 31.5 G/DL (30.0-36.0); MEAN PLAT.VOLUME 10.2 uM^3 (9.5-12.4); MONOCYTE (%) 8.1 % (3-12); NEUTROPHIL (%) 83.5 % (45-76); NEUTROPHIL COUNT 10.6 K/uL (1.8-6.4); NRBC (%) 0.3 /100 WBC (0-0); PLATELET COUNT 212 K/uL (156-360); RBC DIS.WIDTH-CV 15.2 % (11.8-14.6); RBC DIS.WIDTH-SD 48.8 % (39-53); RED BLOOD COUNT 3.81 M/uL (3.80-5.20); WHITE BLOOD COUNT 12.7 K/uL (4.1-10.2)
[2017-07-21 07:58] LABS: ANION GAP 12 MEQ/L (2-14); CHLORIDE 98 MEQ/L (99-109); GFR ESTIMATE (CALCULATED) 21 mL/min/; GLUCOSE 83 mg/dL (70-99); POTASSIUM 5.1 MEQ/L (3.7-5.4); SAMPLE HEMOLYSIS CHECK 0; SAMPLE ICTERIC CHECK 0; SAMPLE LIPEMIA CHECK 0; SODIUM 129 MEQ/L (136-147); UREA NITROGEN (BUN) 56 mg/dL (9-23)
[2017-07-21 11:49] VITALS: BP 171/87
[2017-07-21 16:30] VITALS: BP 131/81
[2017-07-21 20:10] VITALS: BP 150/90
[2017-07-22] VITALS (7 sets, daily range): BP systolic 132–184; BP diastolic 74–93
[2017-07-23 03:50] VITALS: BP 122/64
[2017-07-23 07:05] LABS: EOSINOPHIL (%) 0.4 % (0-5); IMMATURE GRANULOCYTE (%) 0.7 % (0.0-0.7); IMMATURE GRANULOCYTE COUNT 0.1 K/uL; INSTRUMENT ABS NEUTROPHIL CT 8.9 K/uL; LYMPHOCYTE COUNT 0.7 K/uL (1.0-2.8); MCHC 31.7 G/DL (30.0-36.0); MCV 91.4 FL (83-99); MEAN PLAT.VOLUME 10.1 uM^3 (9.5-12.4); MONOCYTE (%) 8.8 % (3-12); MONOCYTE COUNT 0.9 K/uL (0-0.8); NEUTROPHIL (%) 83.1 % (45-76); NEUTROPHIL COUNT 8.9 K/uL (1.8-6.4); NRBC (%) 0.3 /100 WBC (0-0); PLATELET COUNT 206 K/uL (156-360); RBC DIS.WIDTH-CV 15.9 % (11.8-14.6); RBC DIS.WIDTH-SD 50.7 % (39-53); RED BLOOD COUNT 3.83 M/uL (3.80-5.20); WHITE BLOOD COUNT 10.7 K/uL (4.1-10.2)
[2017-07-23 07:32] LABS: ALKALINE PHOSPHATASE 85 IU/L (3-129); ANION GAP 11 MEQ/L (2-14); CHLORIDE 104 MEQ/L (99-109); GLUCOSE 67 mg/dL (70-99); POTASSIUM 4.6 MEQ/L (3.7-5.4); SAMPLE HEMOLYSIS CHECK 1; SAMPLE ICTERIC CHECK 0; SAMPLE LIPEMIA CHECK 0; SODIUM 133 MEQ/L (136-147); TOTAL BILIRUBIN 0.7 MG/DL (0.0-1.0); UREA NITROGEN (BUN) 44 mg/dL (9-23)
[2017-07-23 07:36] LABS: GFR ESTIMATE (CALCULATED) 30 mL/min/
[2017-07-23 12:30] VITALS: BP 138/63
[2017-07-23 12:48] LABS: POINT-OF-CARE METER ID UU14208753
[2017-07-23 13:09] LABS: POTASSIUM 4.6 mEq/L (3.7-5.4); SODIUM 134 mEq/L (136-147)
[2017-07-23 13:10] LABS: CHLORIDE 107 mEq/L (99-109)
[2017-07-23 13:12] LABS: ANION GAP 12 MEQ/L (2-14)
[2017-07-23 13:15] LABS: GFR ESTIMATE (CALCULATED) 30 mL/min/
[2017-07-23 13:16] LABS: UREA NITROGEN (BUN) 47 mg/dL (9-23)
[2017-07-23 13:18] LABS: GLUCOSE 114 mg/dL (70-99)
[2017-07-23 13:21] LABS: TROP-I INTERPRETATION NEGATIVE; TROPONIN-I 0.19 ng/mL (0.0-0.30)
[2017-07-23 13:25] VITALS: BP 146/95
[2017-07-25 07:19] VITALS: BP 131/09
[2017-07-25 11:00] VITALS: BP 124/88
[2017-07-25 15:00] VITALS: BP 126/86
== END 2017-07-25 17:15 | DRG 871 ==
LOC: EME 14:57 → EDOF 20:11 → 3EAST 20:11 → ENRESERV 20:13 → 3EAST 21:07 → ENRESERV 07-23 12:55 → 4EAST 07-23 13:20
PROVIDERS: Emergency Medicine; Internal Medicine; Physician Assistant; Student in an Organized Health Care Education/Training Program
DX: A41.9 Sepsis, unspecified organism (principal); N39.0 Urinary tract infection, site not specified; G93.40 Encephalopathy, unspecified; J96.11 Chronic respiratory failure with hypoxia; N17.9 Acute kidney failure, unspecified; R65.20 Severe sepsis without septic shock; N18.4 Chronic kidney disease, stage 4 (severe); C34.91 Malignant neoplasm of unspecified part of right bronchus or lung; I48.2 Chronic atrial fibrillation; J44.9 Chronic obstructive pulmonary disease, unspecified; B02.7 Disseminated zoster; K21.9 Gastro-esophageal reflux disease without esophagitis; I12.9 Hypertensive chronic kidney disease with stage 1 through stage 4 chronic kidney disease, or unspecified chronic kidney disease; F41.9 Anxiety disorder, unspecified; I27.20 Pulmonary hypertension, unspecified; F22 Delusional disorders; E87.1 Hypo-osmolality and hyponatremia; E86.0 Dehydration; E87.6 Hypokalemia; Z66 Do not resuscitate; J90 Pleural effusion, not elsewhere classified; J81.1 Chronic pulmonary edema; R41.0 Disorientation, unspecified; L40.9 Psoriasis, unspecified; E03.9 Hypothyroidism, unspecified; K27.9 Peptic ulcer, site unspecified, unspecified as acute or chronic, without hemorrhage or perforation; Z82.5 Family history of asthma and other chronic lower respiratory diseases; Z99.81 Dependence on supplemental oxygen; Z85.118 Personal history of other malignant neoplasm of bronchus and lung; Z79.899 Other long term (current) drug therapy; Z79.82 Long term (current) use of aspirin; Z87.891 Personal history of nicotine dependence; Z87.11 Personal history of peptic ulcer disease; Z96.649 Presence of unspecified artificial hip joint; Z92.3 Personal history of irradiation
CPT/HCPCS: 36600; 70450; 71010; 80048; 80048 91; 80053; 81003; 82803; 82948; 83605; 83930; 84443; 84484; 85025; 85025 91; 85027; 87040; 87086; 93005; 94640; 94640 76; 94799; 95819; 97530 GO; 97530 GP; 99202; 99281; 99285; J0133; J0690; J1644; J2060; J2270; J2405; J3480; J7030; J7050